=== PATIENT | male | born 1960 | race Caucasian/White ===

== ENCOUNTER 2016-10-05 23:20 | Inpatient (IN) | payer OTHER ==
--- NOTE | ~2016-10-05 | HP ---
Unit #: [id number] #: [id number] Patient: TORI SLAAS [id number] [address] [address] [id number] I MR#: [id number] NAME: TORI SALAS ROOM: 45 Age: 56 Sex: M Admission Date: 10/06/2016 : 1960 Attending Physician: Evette Paez M.D. Primary Care Physician: No Primary Care Physician HISTORY AND PHYSICAL REVISED REPORT CHIEF COMPLAINT Possible left tibial plateau fracture with hemarthrosis, hyponatremia, hypokalemia. HISTORY This 56-year-old male with multiple surgeries for congenital foot deformities, status post XRT for throat cancer is admitted after a fall with left knee pain. Patient states that he fell last evening, had to crawl to the phone to call EMS. He was brought to this emergency department complaining of left knee pain. X-rays are suspicious for a left tibial plateau fracture with likely hemarthrosis around the suprapatellar region. The patient also has osteopenia. A call was made to Dr. Lea who will see the patient in the morning but probably will treat conservatively given osteopenia. In the ER the patient was given 5 mg of hydrocodone. Labs are notable for hypokalemia and hyponatremia, and white blood count of 1.5 with an elevated MCV. PAST MEDICAL HISTORY 1. Throat cancer, status post XRT around 2007. 2. Chronic pain. 3. Multiple hand surgeries. 4. 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 ALLERGIES No known drug allergies. HOME MEDICATIONS Hydrocodone 10 mg q.i.d. FAMILY HISTORY Negative for CAD. SOCIAL HISTORY The patient lives alone. He smokes one pack per day of tobacco, drinks occasional beer. REVIEW OF SYSTEMS Notable for left knee pain, left foot requiring multiple surgeries, hand surgeries, tobacco abuse, throat cancer, chronic pain. All other systems were reviewed and are otherwise negative. Unit #: [id number] #: [id number] Patient: TORI SALAS PHYSICAL EXAMINATION GENERAL: 56-year-old male currently in no acute distress. VITAL SIGNS: Temperature 98.1, pulse 91, respirations 16, blood pressure 127/82, O2 saturation is 96% on room air. HEENT: Eyes - PERRLA, extraocular muscles are intact. Pharynx is difficult for me to view due to previous throat cancer. NECK: Supple without adenopathy or thyromegaly. CHEST: Fairly clear. CARDIAC: Slightly tachy S1 and S2 without murmur. There is rib cage/chest deformity noted. ABDOMEN: Bowel sounds are present. Mild hepatomegaly on exam, nontender. No masses. EXTREMITIES: Legs are both short with some edema bilaterally, there is pain around the left knee with effusion. Pain with movement of the left knee. NEUROLOGIC: Patient is awake, alert, oriented, cranial nerves are intact. He has equal strength throughout but is quite week on exam. DIAGNOSTIC STUDIES ADMISSION LABS: Hematocrit is 38.9, white blood count is 1.5 with an MCV of 114, normal differential. SMA 7 - sodium 125, potassium 3.2, chloride is 87. IMAGING STUDIES: X-rays of the left knee show prepatellar edema, likely hemarthrosis, osteopenia, cortical irregularity, medial proximal tibial metastasis. ASSESSMENT 1. Fall with possible left tibial fracture and hemiarthrosis. Patient has osteopenia and likely this will be treated nonoperatively. 2. Hyponatremia and hypokalemia. 3. Status post XRT for throat cancer. 4. Tobacco abuse. 5. Chronic pain. 6. Multiple leg surgeries for congenital foot deformities. 7. Chest deformity. 8. Neutropenia with normal differential and elevated MCV. PLANS 1. Orthopedic surgeon has been consulted. Will see in the morning. 2. Pain control. 3. Check urine sodium, TSH, chest x-ray. 4. Replace potassium and check magnesium. 5. SCDs for DVT prophylaxis. 6. Retic count, folic acid level and check B12 level. 7. Will check LFTs in the morning. 1. Dictated by Evette Paez M.D. AML/ts TD: 10/06/2016 05:59 JOB #: [id number] Unit #: [id number] #: [id number] Patient: TORI SALAS HISTORY AND PHYSICAL Page 1 of 1 X Evette Paez MD HISTORY AND PHYSICAL
--- NOTE | ~2016-10-05 | A ---
[facility] Nutrition Therapy DATE: 10/06/16 Patient: TORI DANIELKETT Physician: SUBHASH Address: [address] [place] [address] Room/Bed: [address] [place] [address], Zip: [place] [address] Admit Date: 10/06/16 Date of : 62 Height: 5 5 Weight: 99 45 NUTRITIONAL ASSESSMENT: REASON: PT SEEN FOR LOW BMI PT IS 56 Y.O. MALE ADMITTED FOR (L) TIBIAL PLATEAU FX PMH: THROAT CANCER S/P XRT IN 2007, CHRONIC PAIN SYNDROME, BILATERAL CONGENITAL DEFORMITY OF LEGS REQUIRING MULTIPLE SURGERIES Anthropometrics: 5'5", WT: 99# (45 KG), BMI: 16.5, 73%IBW Labs: BUN: <5, CREAT: 0.3, CA+:8.3, ALB: 3.3, NA+:129 Meds: LAXATIVE, ZOFRAN, NACL I/O & Bowel function: 405/300 Skin Integrity: BARREL CHEST OBSERVED EDEMA: BLE GENERALIZED EDEMA Estimated Nutrition Needs: INCREASED NUTRIENT NEEDS 2' PT UNDERWEIGHT STATUS, PMH Assessment: CHART REVIEWED AND EVENTS NOTED. PT SEEN FOR LOW BMI. PT REPORTS FAIR, "OK" PO INTAKE 2' DECREASED APPETITE, NOTES APPETITE "GOES UP AND DOWN". PT ADDS OCCASIONAL DIFFICULTY SWALLOWING. PT REPORTS CONSUMING ~2 MEALS + 1 SNACK DAILY AT HOME. PT REPORTS HIS UBW IS ~188#, NOTES LOSING WEIGHT SINCE XRT THERAPY IN 2007. OF NOTE, PT ATE ~50% BREAKFAST THIS AM. THIS RD ENCOURAGED ADEQUATE KCAL AND PROTEIN INTAKE, PT AGREED TO MAGIC CUP BID, RD WILL ORDER.PT REPORTED NO DIET QUESTIONS AT THIS TIME. RD TO FOLLOW. Dx: INADEQUATE PROTEIN-ENERGY INTAKE R/T APPETITE SO-SO AEB PT REPORT ABOVE, BMI OF 16.5, 73%IBW, WEIGHT LOSS NOTED OVER THE YEARS. Intervention: 1. MECHANICAL GROUND DIET 2. VANILLA MAGIC CUP BID Monitoring, Evaluation and Goals: 1. PO INTAKE; PROVIDE AND CONSUME ADEQUATE NUTRITION W/NO C/O N/V/D (PO>50%) 2. WEIGHTS; PROMOTE GRADUAL WEIGHT GAIN; PREVENT WEIGHT LOSS; PROMOTE LEAN BODY MASS 3. LABS; WNL 4. GI; PROMOTE REGULAR GI FUNCTION MONITOR: [facility] Nutrition Therapy DATE: 10/06/16 Patient: TORI SALAS Physician: SUBHASH Address: [address] Room/Bed: [address] [place] [address], Zip: [place] [address] Admit Date: 10/06/16 Date of : [birth year] Height: 5 5 Weight: 99 45 -PO INTAKE/APPETITE -SUPPLEMENT INTAKE -WEIGHTS Recommendations: 1. RECOMMEND TO CONSULT DIRECTOR OF INSTRUCTION RE: PT REPORT ABOVE OF NOTING TROUBLE SWALLOWING AT TIMES 2. PLEASE ORDER VANILLA MAGIC CUP BID W/MEALS ONCE APPROPRIATE 3. PLEASE WEIGH PT q 3 DAYS FOR MONITORING PURPOSES 4. APPRECIATE FAMILY AND STAFF TO ENCOURAGE ADEQUATE KCAL AND PROTEIN INTAKE RD WILL F/U PER PROTOCOL PT IS MILD/MODERATELY COMPROMISED Respectfully, PRUDENCE BROWNING MS, RD, LD [employer] [facility] cc: client file
--- NOTE | ~2016-10-05 | CR172 ---
[facility] A Service of [facility] RADIOLOGY TEXT RESULTS PATIENT: TORI SALAS LOCATION: [place] [address] : [birth year] UNIT #: [id number] AGE: [address]: Rosa Ashton MD SEX: M ORDER DR: [id number] [place] [id number] [facility]. [place], [place] [address] [id number] I MR#: [id number] Acc #: [id number] NAME: TORI SALAS : 1960 SEX: M STUDY DATE/TIME: 10/05/2016 22:23 UNIT: [facility] ROOM: 459 STUDY DESCRIPTION: CR Knee 3 Views Lt Attending Physician: Rosa Ashton M.D. Ordering Physician: Yann Dan M.D. Primary Care Physician: Primary Care Physician No MEDICAL IMAGING REPORT This report is preliminary unless electronic signature is present EXAM Left knee, 3 views COMPARISON None. INDICATION 56-year-old male with knee pain and swelling after falling today. FINDINGS The exam is limited by osteopenia. There is a large suprapatellar effusion/hemarthrosis. There is prepatellar soft tissue thickening, perhaps due to post-traumatic edema. There is irregularity at the medial aspect of the medial proximal tibial metaphysis. This could represent an acute fracture. IMPRESSION 1. There is prepatellar edema, likely post traumatic and there is a large suprapatellar effusion/hemarthrosis. 2. There is diffuse osteopenia limiting evaluation for acute fracture, however there appears to be cortical irregularity along the medial aspect of the medial proximal tibial metaphysis, raising concern for an acute fracture. No dislocation. Dictated by... Alvino Dodson M.D. THIS IS AN ELECTRONICALLY VERIFIED REPORT Alvino Dodson M.D. at 10/09/2016 9:14 PM MARINA/letty TD: 10/06/2016 07:47 [facility] A Service of [facility] RADIOLOGY TEXT RESULTS PATIENT: TORI SALAS LOCATION: [facility]2- : 62 UNIT #: [id number] AGE: [address]: Rosa Ashton MD SEX: M ORDER DR: JOB #: [id number] MEDICAL IMAGING REPORT Page 1 of 1 COPY
--- NOTE | ~2016-10-05 | DS ---
Unit #: [id number] #: [id number] Patient: TORI BAKER [id number] [address] [address] [id number] I MR#: [id number] NAME: TORI BAKER ROOM: [facility] Age: 56 Sex: M Admission Date: 10/06/2016 : 1960 Discharge Date: 10/09/2016 Attending Physician: Rosa Ashton M.D. DISCHARGE SUMMARY PRINCIPAL DIAGNOSES 1. Right tibial plateau fracture, nonoperative. 2. Chronic leukopenia with negative malignancy workup, question alcohol induced. 3. Chronic macrocytic anemia with normal folate level. 4. Mild hyponatremia, resolved. 5. Hypomagnesemia. 6. Chronic lymphedema. 7. Chronic pain syndrome, maintained on narcotics. 8. Mild vitamin B12 deficiency with vitamin B12 level of 295. 9. Underweight. 10. Moderate protein malnutrition. 11. Iron deficiency. 12. Alcohol use without evidence of withdrawal. 13. Prior history of throat cancer without evidence of recurrence. 14. Large right pleural effusion. CONSULTANTS 1. Dr. Lea, Orthopedic Surgery. 2. Dr. Bingham, Oncology. PROCEDURES 1. A two-dimensional echocardiogram on October 07, 2016, with mild tricuspid regurgitation. Grade 1 diastolic dysfunction noted. 2. CT of the chest without contrast on October 08, 2016, with a large right pleural effusion resulting in atelectasis in the right lower and part of the right upper lung. Ground-glass attenuation left upper lobe. 3. CT of the abdomen and pelvis without contrast on October 08, 2016, with no acute findings. Asymptomatic cholelithiasis noted. Benign left adrenal adenoma noted. 4. X-ray of left knee with prepatellar edema with associated suprapatellar effusion and hemarthrosis. Osteopenia noted. CLINICAL HISTORY AND HOSPITAL COURSE Mr. Baker is a 56-year-old male who presented to the emergency department with left leg pain after a fall at home. Please refer to History and Physical for further details. X-ray in the emergency department revealed a left tibial plateau fracture with associated hemarthrosis. Patient was unable to ambulate and was subsequently admitted. Dr. Lea was consulted. Upon evaluating the patient and reviewing the x-ray, he felt that this fracture would not require surgical repair. The plan is for nonweightbearing to left lower extremity with a small knee Unit #: [id number] #: [id number] Patient: TORI BAKER immobilizer on the left knee and follow up in the office. In the emergency department, patient was found to have a significant macrocytic anemia in conjunction with significant leukopenia. Review of records indicates leukopenia was rather chronic, as was macrocytosis. Dr. Bingham was consulted. Vitamin B12 level was found to be mildly low at 265, but workup was otherwise negative. LDH was also normal. CT scan of the chest, abdomen, and pelvis were also unremarkable for any lymphadenopathy or recurrent malignancy. It is felt that these abnormalities are chronic and may be secondary to chronic alcohol use. No further malignancy workup at least while inpatient. A CT scan of the chest did reveal a large right-sided pleural effusion, but patient is refusing thoracentesis. He states he has no symptoms, he does not feel short of breath, his oxygenation is normal, and if he has recurrent symptoms, he will re-present. Patient is otherwise clinically stable and will be discharged to rehab when a bed is available. DISCHARGE CONDITION Stable. DISCHARGE STATUS Discharge to rehab. DISCHARGE MEDICATIONS 1. Lac-Hydrin lotion twice daily to lower extremities. 2. Ferrous gluconate 324 mg daily. 3. Counce 10/325 at 1 tablet p.o. q.4 hours p.r.n. for pain. 4. Vitamin B12 at 1000 mcg p.o. daily. DISCHARGE INSTRUCTIONS 1. Patient was instructed to follow a high protein regular diet. 2. He can increase his activity as tolerated, but again, he is nonweightbearing on the left lower extremity and should wear the small knee immobilizer to the left lower extremity. FOLLOWUP Patient will follow up with Dr. Lea in two weeks. He can follow up with Dr. Bingham upon discharge from rehab and will follow up with his primary care physician at that time as well. Dictated by... Rosa Ashton M.D. Tsering TD: 10/09/2016 17:24 JOB #: [id number] Unit #: [id number] #: [id number] Patient: TORI BAEKR DISCHARGE SUMMARY Page 1 of 1 X Rosa Ashton MD DISCHARGE SUMMARY
--- NOTE | ~2016-10-05 | CT4 ---
[facility] A Service of [facility] RADIOLOGY TEXT RESULTS PATIENT: TORI SALAS LOCATION: [facility]08-09 : [birth year] UNIT #: [id number] AGE: [address]: Rosa Ashton MD SEX: M ORDER DR: [id number] [facility] [address] [facility]. [place], [place] [address] [id number] I MR#: [id number] #: [id number] NAME: TORI SALAS : 1960 SEX: M STUDY DATE/TIME: 10/08/2016 11:55 UNIT: [facility] ROOM: [facility] STUDY DESCRIPTION: CT Abd and Pelv Wo Cont Attending Physician: Rosa Ashton M.D. Ordering Physician: Cristo Willingham M.D. Primary Care Physician: Primary Care Physician No MEDICAL IMAGING REPORT This report is preliminary unless electronic signature is present EXAM CT abdomen and pelvis INDICATIONS Leukopenia. Positive smoker. Unexplained weight loss. Concern for metastatic disease. TECHNIQUE CT of the abdomen and pelvis with oral contrast only. Coronal and sagittal reconstructions were obtained. This CT exam was performed with one or more of the following radiation dose reduction techniques: Automatic exposure control, adjustment of mA and/or kV according to patient size, and iterative reconstruction. COMPARISON Concurrent CT chest dated 10/08/2016. FINDINGS The liver, pancreas, spleen, and kidneys are within normal limits on this noncontrasted study. No hydronephrosis. There is a left adrenal nodule measuring 1.5 cm. Given the low attenuation, this is consistent with a benign adenoma. There are some gallstones filling the gallbladder. The bowel is not dilated. The abdominal aorta is normal in caliber. PELVIS: No enlarged pelvic or inguinal lymph nodes. There is mild bladder wall thickening. Please correlate with urinalysis to identify cystitis. No acute osseous abnormalities. There is severe dysplasia and [facility] A Service of [facility] RADIOLOGY TEXT RESULTS PATIENT: TORI SALAS LOCATION: [facility]08-09 : [birth year] UNIT #: [id number] AGE: [address]: Rosa Ashton MD SEX: M ORDER DR: degenerative changes associated with the left femoral head and left hip. IMPRESSION 1. No acute findings in the abdomen and pelvis. 2. Cholelithiasis. 3. Benign left adrenal adenoma. 4. Not mentioned above, there is mild circumferential thickening of the urinary bladder. This is nonspecific, however can be seen in the setting of cystitis. Correlation to urinalysis is recommended. Dictated by... Almas Leon M.D. THIS IS AN ELECTRONICALLY VERIFIED REPORT Almas Leon M.D. at 10/09/2016 2:12 PM RPC/ally TD: 10/08/2016 19:16 JOB #: [id number] MEDICAL IMAGING REPORT Page 1 of 1 COPY
--- NOTE | ~2016-10-05 | CO ---
Unit #: [id number] #: [id number] Patient: TORI SALAS [id number] [address] [address] [id number] I MR#: [id number] NAME: TORI SALAS ROOM: 459 Age: 56 Sex: M Admission Date: 10/06/2016 : 1960 Attending Physician: Rosa Ashton M.D. Primary Care Physician: No Primary Care Physician Consultation Date: 10/06/2016 CONSULTATION REPORT REASON FOR CONSULTATION Left medial tibial plateau fracture. HISTORY OF PRESENT ILLNESS Mr. Salas is a 56-year-old male with a history of bilateral congenital deformity to his legs. The patient apparently was at home when he fell and sustained a left knee injury. He was able to crawl to the phone and be taken to the emergency room. In the emergency room, he was noted to have significant osteopenia of the left leg and knee. He was noted to have a small cortical breach of the medial tibial plateau and a hemarthrosis. Due to his inability to walk and that he lives by himself, he was admitted for social insurance administrator. The patient also has multiple medical history with throat cancer, chronic pain. He notes pain in the left knee. It is worse with motion than at rest. No prior problems with that knee specifically. He described a dull ache. PAST MEDICAL HISTORY 1. Throat cancer, status post radiation in 2007. 2. Chronic pain syndrome. PAST SURGICAL HISTORY 1. Multiple leg surgeries and hand surgeries. 2. Prior laryngectomy. SOCIAL HISTORY The patient lives alone. He does smoke one pack of cigarettes daily. He has occasional alcohol. FAMILY HISTORY Noncontributory. ALLERGIES No known drug allergies. HOME MEDICATIONS Hydrocodone 10 mg q.i.d. REVIEW OF SYSTEMS Aside from the left knee, no other significant issues at this time that he reports. PHYSICAL EXAMINATION GENERAL: The patient is a 56-year-old male in no acute distress. He is alert and oriented to examination. Unit #: [id number] #: [id number] Patient: TORI SALAS VITALS: Temperature 97.9 degrees Fahrenheit, pulse 105, respiratory rate 16, blood pressure 139/86, oxygen saturation 99% on room air. HEENT: Head atraumatic, normocephalic. Extraocular movements intact. Evidence of prior laryngectomy. CERVICAL SPINE: Midline. Tolerates cervical motion. LUNGS: Breathing normally, unlabored. CHEST: Chest rises symmetric. HEART: Pulse regular rate and rhythm. ABDOMEN: Soft, nontender and nondistended. EXTREMITIES: There is some mild edema of the bilateral lower extremities. No cyanosis or clubbing appreciated. Examination of the left lower extremity reveals mild swelling about the knee with tenderness to palpation about the medial tibial plateau. Tolerates 5 degrees of motion of the knee passively. Left leg is warm and well perfused. Intact motor and sensory examination. SKIN: No other skin lesions appreciated. NEUROLOGIC: DIAGNOSTIC STUDIES IMAGING: X-rays reviewed of the left knee. There is a small cortical breach along the medial tibial plateau with significant osteopenia. Hemarthrosis noted. No significant displacement of the fracture site. LABORATORY: Sodium 125, potassium 3.2, white blood cell count 1.5, hemoglobin 13.0. ASSESSMENT The patient is a 56-year-old male with nondisplaced left medial tibial plateau fracture. PLAN Recommend conservative treatment. We will order him a small knee immobilizer. He needs to keep the leg in this. He is nonweightbearing on the left lower extremity with no knee range of motion at this time. He will likely need rehab due to his social situation. Will order ice and elevation for the knee. He will follow up in the office in approximately two weeks for x-rays. This was discussed with the patient. All of his questions were answered. Dictated by... Yamil Lea M.D. NUSRAT/luis e TD: 10/06/2016 08:26 JOB #: [id number] CC: Yamil Lea M.D. Unit #: [id number] #: [id number] Patient: TORI SALAS CONSULTATION REPORT Page 1 of 1 X X CONSULTATION REPORT
--- NOTE | ~2016-10-05 | CO ---
Unit #: [id number] #: [id number] Patient: BILL SALAS [id number] [address] [address] [id number] I MR#: [id number] NAME: BILL SALAS ROOM: 47 Age: 56 Sex: M Admission Date: 10/06/2016 : 1960 Attending Physician: Rosa Ashton M.D. Consultation Date: 10/07/2016 CONSULTATION REPORT REASON FOR CONSULTATION Microcytic anemia and leukopenia, please evaluate. HISTORY OF PRESENT ILLNESS Mr. Bill Salas is 56 years old, had been for the left tibial plateau fracture and hemarthrosis with a history of congenital foot deformities for which he has had multiple surgeries as well as prior laryngeal cancer. CBC done following admission showed his white count is 2, hemoglobin is 11.5, MCV is 114 with a platelet count of 150,000. Review of his labs in this hospital done on 03/29/2014, his white count is 2.1, hemoglobin is 13.3, MCV is 106, and the platelet count is 187,000. He has had low white counts on previous admissions as well. Mr. Salas tells me that he has had no previous problems with his blood counts. No history of hepatitis or liver disease. He does have a history of alcohol use. He is drinking up to 10 beers a day, but does not admit to being an alcoholic. He was admitted to the hospital following a fall at home. After which, he was brought in, which showed left tibial fracture with hemarthrosis in the suprapatellar region. 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 ALLERGIES He has no known medication allergies. MEDICATION On admission was hydrocodone. FAMILY HISTORY Negative for blood disorders. SOCIAL HISTORY Alcohol, as discussed. Smokes a pack a day. Lives by himself. REVIEW OF SYSTEMS A 14-point review of systems was taken. CONSTITUTIONAL: No changes in appetite or weight. EYES: Negative. EARS, NOSE, MOUTH and THROAT: Negative. CARDIOVASCULAR: Negative. RESPIRATORY: Negative. Unit #: [id number] #: [id number] Patient: BILL SALAS MUSCULOSKELETAL: As discussed . SKIN: Negative. NEUROLOGIC: Negative. PSYCHIATRIC: Negative. PHYSICAL EXAMINATION GENERAL: He is a middle-aged man who looks frail. He is awake, alert, and oriented x3. VITAL SIGNS: Temperature is 98.4, pulse is 99, respiratory rate 17, blood pressure 124/74, oxygen saturation is 100% on room air. . HEENT: Shows pupils are equal and reactive well to light. Mucous membranes are moist. NECK: Without adenopathy, JVD, or thyromegaly. CARDIOVASCULAR: First and second heart sounds are heard and regular without murmurs, gallops, or rubs. LUNGS: Chest expansion is symmetric. Bilateral equal air entry. Normal breath sounds. ABDOMEN: Soft and nontender. Liver and spleen not palpable. EXTREMITIES: Sequelae of multiple surgeries of his foot and ankle are noted as well as deformity in hand and leg, has congenital problems as well. NEUROLOGIC: He is awake, alert, and oriented x3 without any focal findings. SKIN: Negative. ALLERGY/LYMPHATIC: Negative. DIAGNOSTIC STUDIES LABORATORY RESULTS: CBC as mentioned. Complete metabolic panel shows a sodium of 129, BUN is less than 5, creatinine is 0.3, eGFR is 150, AST is 33, ALT is 26, alkaline phosphatase is 66, bilirubin is 1, albumin is 3.3, B12 is 295, folic acid is 7.4. Thyroid function shows a TSH of 0.89 and free T4 was 1.16. ASSESSMENT/PLAN Mr. Bill Salas is 56 years old with a history of congenital foot and hand deformities, admitted with a left tibial fracture as well as hemarthrosis of the knee after a fall. His labs are notable for hyponatremia as well as microcytic anemia with leukopenia with absolute neutropenia. He has no history of liver disease in the past, but does admit to drinking several quantities of beer, which may be a possible culprit. Discussed with the patient. RECOMMENDATIONS 1. CT scan of the abdomen and pelvis to be done with contrast after he passes a bedside swallowing study to determine spleen size as well as liver morphology. 2. Reticulocyte count and LDH given his elevated MCHC. Thank you for allowing me to participate in his care. Dictated by... Delfino Bingham M.D. NILSON/nieves TD: 10/09/2016 05:56 JOB #: [id number] Unit #: [id number] #: [id number] Patient: BILL SALAS CONSULTATION REPORT Page 1 of 1 X Delfino Bingham MD CONSULTATION REPORT
--- NOTE | ~2016-10-05 | CR63 ---
[facility] A Service of [facility] RADIOLOGY TEXT RESULTS PATIENT: TORI SALAS LOCATION: [facility] 4503-09 : 62 UNIT #: [id number] AGE: [address]: Rosa Ashton MD SEX: M ORDER DR: [id number] [facility] [address]. [place], [place] [address] [id number] I MR#: [id number] Acc #: [id number] NAME: TORI SALAS : 1960 SEX: M STUDY DATE/TIME: 10/06/2016 8:29 UNIT: [facility] ROOM: 9 STUDY DESCRIPTION: CR Chest 2 View Attending Physician: Rosa Ashton M.D. Ordering Physician: Evette Paez M.D. Primary Care Physician: Primary Care Physician No MEDICAL IMAGING REPORT This report is preliminary unless electronic signature is present EXAM Chest 10/06/2016 HISTORY 56-year-old male patient history of throat cancer. Cough past 2 days. Decreased NA (presumed sodium). COMPARISON Chest 05/30/2014. FINDINGS 2 view chest demonstrates borderline heart size. There is a combination of vascular congestion and interstitial edema with a moderate right pleural effusion now present. This is all superimposed on preexisting COPD. Lobar edema versus pneumonia right lower lobe. IMPRESSION Cardiac failure versus fluid overload. Patient has a moderate right pleural effusion with vascular congestion. Lobar edema versus pneumonia right lower lobe all superimposed on COPD. STAT * RESULT Dictated by... Niko Toribio M.D. THIS IS AN ELECTRONICALLY VERIFIED REPORT Niko Toribio M.D. at 10/06/2016 11:28 AM MARY/letty [facility] A Service of [facility] RADIOLOGY TEXT RESULTS PATIENT: TORI SALAS LOCATION: [facility] 4503-09 : 62 UNIT #: [id number] AGE: [address]: Rosa Ashton MD SEX: M ORDER DR: TD: 10/06/2016 11:04 JOB #: [id number] MEDICAL IMAGING REPORT Page 1 of 1 COPY
--- NOTE | ~2016-10-05 | CT57 ---
[facility] A Service of [facility] RADIOLOGY TEXT RESULTS PATIENT: TORI SALAS LOCATION: [facility] : 62 UNIT #: [id number] AGE: [address]: Rosa Ashton MD SEX: M ORDER DR: [id number] [place] [id number] [facility]. [place], [place] [address] [id number] I MR#: [id number] Acc #: [id number] NAME: TORI SALAS : 1960 SEX: M STUDY DATE/TIME: 10/08/2016 11:55 UNIT: [facility] ROOM: [facility] STUDY DESCRIPTION: CT Chest Wo Cont Attending Physician: Rosa Ashton M.D. Ordering Physician: Cristo Willingham M.D. Primary Care Physician: Primary Care Physician No MEDICAL IMAGING REPORT This report is preliminary unless electronic signature is present EXAM CT chest 10/08/2016 INDICATIONS Recent fall. Positive smoking history. Leukopenia. Weight loss. TECHNIQUE CT of the thorax without contrast. Coronal and sagittal reconstructions were obtained. This CT exam was performed with one or more of the following radiation dose reduction techniques: automatic exposure control, adjustment of mA and/or kV according to patient size, and iterative reconstruction. COMPARISON Concurrent CT abdomen and pelvis dated 10/08/2016. FINDINGS There is a large right pleural effusion. This results in atelectasis in a large portion of the right lower lobe and portions of the right upper lobe. There is minimal ground-glass attenuation in the left upper lobe adjacent to the left major fissure. There is a small left pleural effusion. Central airways are patent. No pathologically enlarged mediastinal or hilar lymph nodes. The thoracic aorta is normal in caliber. No acute osseous abnormalities. IMPRESSION 1. Large right pleural effusion results in atelectasis in a portion of the right lung. 2. Ground-glass attenuation in the left upper lobe may represent an [facility] A Service of [facility] RADIOLOGY TEXT RESULTS PATIENT: TORI SALAS LOCATION: [facility] : 62 UNIT #: [id number] AGE: [address]: Rosa Ashton MD SEX: M ORDER DR: acute inflammatory/infectious process. Please correlate for any signs or symptoms of pneumonia. Dictated by... Almas Leon M.D. THIS IS AN ELECTRONICALLY VERIFIED REPORT Almas Leon M.D. at 10/09/2016 2:12 PM RPC/to TD: 10/08/2016 19:05 JOB #: [id number] MEDICAL IMAGING REPORT Page 1 of 1 COPY
[~2016-10-05 23:20] MED LIST: ALBUTEROL17 G1; LORTAB 101 TAB 10/5; WATER PILL
[2016-10-05 23:28] LABS: BASOPHIL% 0.9 % (0-2.5); DIFF IND YES; EOSINOPHIL% 1.1 % (0.0-7.0); HEMATOCRIT 38.9 % (38.0-50.0); LYMPHOCYTE# 0.4 X10e3 (1.0-3.5); LYMPHOCYTE% 29.7 % (17.0-45.0); MEAN CELL VOLUME 114.3 FL (83-96); MEAN CORPUSCULAR HEMOGLOBIN 38.2 PG (28-34); MEAN CORPUSCULAR HGB CONC 33.4 g/dL (30-36); MEAN PLATELET VOLUME 6.8 FL (6.5-11.5); MONOCYTE# 0.2 X10e3 (0-1.0); MONOCYTE% 16.4 % (3.0-12.0); NEUTROPHIL# 0.8 X10e3 (1.5-7.1); NEUTROPHIL% 51.9 % (40-75); PLATELET COUNT 213 X10e3 (140-420); RED CELL DISTRIBUTION WIDTH 12.4 % (11.0-15.5); WHITE BLOOD COUNT 1.5 X10e3 (4.0-10.5)
[2016-10-05 23:37] LABS: INR 1.1; PROTHROMBIN TIME (PATIENT) 11.4 SECONDS (9.6-11.5)
[2016-10-05 23:56] LABS: PLATELET ESTIMATE NORMAL (NORMAL)
[2016-10-06] LABS: CALCIUM SERUM 8.4 mg/dL (8.4-10.2); CARBON DIOXIDE 29 mmol/L (22-31); CHLORIDE 87 mmol/L (100-111); CREATININE SERUM 0.4 mg/dL (0.6-1.4); GLOM FILT RATE Estimated 133.8 mL/min (>60); GLUCOSE FASTING 75 mg/dL (70-110); POTASSIUM 3.2 mmol/L (3.5-5.1)
[2016-10-06 00:01] LABS: BLOOD UREA NITROGEN <5 mg/dL (9-23)
[2016-10-06 00:02] LABS: SODIUM 125 mmol/L (135-145)
[2016-10-06] MEDS ORDERED: HYDROCODONE-APA1 T55 PO (03:51)
[2016-10-06 10:06] LABS: BASOPHIL% 0.3 % (0-2.5); DIFF IND NO; EOSINOPHIL% 0.5 % (0.0-7.0); HEMATOCRIT 39.7 % (38.0-50.0); HEMOGLOBIN 13.4 gm/dL (13.0-16.0); LYMPHOCYTE# 0.2 X10e3 (1.0-3.5); MEAN CELL VOLUME 114.4 FL (83-96); MEAN CORPUSCULAR HEMOGLOBIN 38.7 PG (28-34); MEAN CORPUSCULAR HGB CONC 33.8 g/dL (30-36); MEAN PLATELET VOLUME 6.9 FL (6.5-11.5); MONOCYTE# 0.2 X10e3 (0-1.0); NEUTROPHIL# 1.2 X10e3 (1.5-7.1); NEUTROPHIL% 72.2 % (40-75); PLATELET COUNT 193 X10e3 (140-420); RED BLOOD COUNT 3.47 X10e (3.90-5.60); RED CELL DISTRIBUTION WIDTH 12.3 % (11.0-15.5); RETICULOCYTE 1.5 % (0.5-2.8); WHITE BLOOD COUNT 1.7 X10e3 (4.0-10.5)
[2016-10-06 10:22] LABS: ALBUMIN SERUM 3.3 g/dL (3.5-5.0); ALKALINE PHOSPHATASE 66 U/L (32-92); ALT (SGPT) 26 U/L (10-40); AST (SGOT) 33 U/L (10-42); BLOOD UREA NITROGEN <5 mg/dL (9-23); BUN/CREATININE RATIO 16.66; CALCIUM SERUM 8.3 mg/dL (8.4-10.2); CARBON DIOXIDE 28 mmol/L (22-31); CHLORIDE 94 mmol/L (100-111); CREATININE SERUM 0.3 mg/dL (0.6-1.4); GLOM FILT RATE Estimated 150.6 mL/min (>60); GLUCOSE FASTING 87 mg/dL (70-110); MAGNESIUM 1.6 mg/dL (1.6-3.0); POTASSIUM 4.3 mmol/L (3.5-5.1); PROTEIN TOTAL SERUM 5.5 g/dL (6.0-8.3); SODIUM 129 mmol/L (135-145)
[2016-10-06 10:29] LABS: THYROID STIMULATING HORMONE 0.89 uIU/ml (0.34-5.60)
[2016-10-06 10:35] LABS: FREE THYROXIN (T4) 1.16 ng/dL (0.58-1.64)
[2016-10-06 12:59] LABS: FOLATE (FOLIC ACID) 11.4 ng/mL (>5.8)
[2016-10-06 17:26] LABS: BLOOD UREA NITROGEN <5 mg/dL (9-23); CALCIUM SERUM 8.1 mg/dL (8.4-10.2); CARBON DIOXIDE 27 mmol/L (22-31); CHLORIDE 97 mmol/L (100-111); CREATININE SERUM 0.4 mg/dL (0.6-1.4); GLOM FILT RATE Estimated 133.8 mL/min (>60); GLUCOSE FASTING 127 mg/dL (70-110); POTASSIUM 4.2 mmol/L (3.5-5.1); SODIUM 131 mmol/L (135-145)
[2016-10-07 04:27] LABS: BASOPHIL% 1.3 % (0-2.5); EOSINOPHIL% 0.4 % (0.0-7.0); HEMATOCRIT 33.6 % (38.0-50.0); HEMOGLOBIN 11.5 gm/dL (13.0-16.0); LYMPHOCYTE# 0.4 X10e3 (1.0-3.5); LYMPHOCYTE% 18.5 % (17.0-45.0); MEAN CELL VOLUME 114.4 FL (83-96); MONOCYTE# 0.4 X10e3 (0-1.0); MONOCYTE% 18.8 % (3.0-12.0); NEUTROPHIL# 1.2 X10e3 (1.5-7.1); PLATELET COUNT 150 X10e3 (140-420); RED BLOOD COUNT 2.94 X10e (3.90-5.60); RED CELL DISTRIBUTION WIDTH 12.3 % (11.0-15.5)
[2016-10-07 04:30] LABS: DIFF IND NO
[2016-10-07 04:41] LABS: BLOOD UREA NITROGEN <5 mg/dL (9-23); CALCIUM SERUM 7.9 mg/dL (8.4-10.2); CARBON DIOXIDE 26 mmol/L (22-31); CHLORIDE 98 mmol/L (100-111); CREATININE SERUM 0.4 mg/dL (0.6-1.4); GLOM FILT RATE Estimated 133.8 mL/min (>60); GLUCOSE FASTING 113 mg/dL (70-110); MAGNESIUM 2.1 mg/dL (1.6-3.0); POTASSIUM 3.6 mmol/L (3.5-5.1); SODIUM 131 mmol/L (135-145)
[2016-10-07 16:27] LABS: IRON SERUM 26 ug/dL (45-182); LACTIC ACID DEHYDROGENASE 118 U/L (91-180); TOTAL IRON BINDING CAPACITY 202 ug/dL (252-460); TRANSFERRIN 144 mg/dL (180-329); TRANSFERRIN SATURATION 13 % (20-50)
[2016-10-08 03:44] LABS: HEMATOCRIT 32.1 % (38.0-50.0); HEMOGLOBIN 10.9 gm/dL (13.0-16.0); MEAN CELL VOLUME 114.9 FL (83-96); MEAN CORPUSCULAR HEMOGLOBIN 39.1 PG (28-34); MEAN PLATELET VOLUME 6.9 FL (6.5-11.5); RED BLOOD COUNT 2.79 X10e (3.90-5.60); RED CELL DISTRIBUTION WIDTH 12.4 % (11.0-15.5); WHITE BLOOD COUNT 1.9 X10e3 (4.0-10.5)
[2016-10-08 03:48] LABS: BLOOD UREA NITROGEN <5 mg/dL (9-23); BUN/CREATININE RATIO 16.66; CALCIUM SERUM 8.1 mg/dL (8.4-10.2); CARBON DIOXIDE 26 mmol/L (22-31); CHLORIDE 99 mmol/L (100-111); CPK (CREATINE PHOSPHOKINASE) 20 IU/L (36-174); CREATININE SERUM 0.3 mg/dL (0.6-1.4); GLOM FILT RATE Estimated 150.6 mL/min (>60); GLUCOSE FASTING 93 mg/dL (70-110); POTASSIUM 3.7 mmol/L (3.5-5.1); SODIUM 132 mmol/L (135-145)
[2016-10-09 04:37] LABS: ALBUMIN SERUM 2.4 g/dL (3.5-5.0); ALKALINE PHOSPHATASE 49 U/L (32-92); ALT (SGPT) 18 U/L (10-40); AST (SGOT) 23 U/L (10-42); BILIRUBIN,TOTAL 0.9 mg/dL (0.2-2.0); BLOOD UREA NITROGEN <5 mg/dL (9-23); BUN/CREATININE RATIO 16.66; CALCIUM SERUM 8.2 mg/dL (8.4-10.2); CARBON DIOXIDE 27 mmol/L (22-31); CHLORIDE 101 mmol/L (100-111); CREATININE SERUM <0.3 mg/dL (0.6-1.4); GLOM FILT RATE Estimated UNABLE TO CALCULATE mL/min (>60); GLUCOSE FASTING 86 mg/dL (70-110); POTASSIUM 3.9 mmol/L (3.5-5.1); PROTEIN TOTAL SERUM 4.9 g/dL (6.0-8.3); SODIUM 133 mmol/L (135-145)
[2016-10-09 15:32] LABS: BASOPHIL% 0.8 % (0-2.5); EOSINOPHIL% 1.1 % (0.0-7.0); HEMATOCRIT 34.8 % (38.0-50.0); HEMOGLOBIN 11.8 gm/dL (13.0-16.0); LYMPHOCYTE# 0.3 X10e3 (1.0-3.5); LYMPHOCYTE% 15.1 % (17.0-45.0); MEAN CELL VOLUME 114.5 FL (83-96); MEAN CORPUSCULAR HGB CONC 34.1 g/dL (30-36); MEAN PLATELET VOLUME 7.2 FL (6.5-11.5); MONOCYTE# 0.5 X10e3 (0-1.0); MONOCYTE% 21.2 % (3.0-12.0); NEUTROPHIL# 1.4 X10e3 (1.5-7.1); NEUTROPHIL% 61.8 % (40-75); PLATELET COUNT 185 X10e3 (140-420); RED BLOOD COUNT 3.04 X10e (3.90-5.60); RED CELL DISTRIBUTION WIDTH 12.1 % (11.0-15.5); WHITE BLOOD COUNT 2.3 X10e3 (4.0-10.5)
[2016-10-09 15:33] LABS: DIFF IND YES
[2016-10-09 15:59] LABS: PLATELET ESTIMATE NORMAL (NORMAL)
== END 2016-10-10 18:00 | DRG 562 ==
LOC: CED 23:20 → CEDOF 10-06 00:45 → C4B 10-06 03:23 → C4C 10-07 13:58
PROVIDERS: Emergency Medicine; Family Medicine; Internal Medicine; Internal Medicine Hematology & Oncology; Nurse Practitioner
PROC: B24BZZZ Ultrasonography of Heart with Aorta (ICD-10-PCS; principal; 2016-10-07)
DX: S82.145A Nondisplaced bicondylar fracture of left tibia, initial encounter for closed fracture (principal); E43 Unspecified severe protein-calorie malnutrition; J90 Pleural effusion, not elsewhere classified; D70.9 Neutropenia, unspecified; E87.1 Hypo-osmolality and hyponatremia; E83.42 Hypomagnesemia; I36.1 Nonrheumatic tricuspid (valve) insufficiency; Z68.1 Body mass index [BMI] 19.9 or less, adult; J98.11 Atelectasis; W19.XXXA Unspecified fall, initial encounter; Y92.009 Unspecified place in unspecified non-institutional (private) residence as the place of occurrence of the external cause; M17.12 Unilateral primary osteoarthritis, left knee; D53.9 Nutritional anemia, unspecified; I89.0 Lymphedema, not elsewhere classified; G89.4 Chronic pain syndrome; Z79.899 Other long term (current) drug therapy; E53.8 Deficiency of other specified B group vitamins; D50.9 Iron deficiency anemia, unspecified; Z72.89 Other problems related to lifestyle; M85.862 Other specified disorders of bone density and structure, left lower leg; E87.6 Hypokalemia; F17.210 Nicotine dependence, cigarettes, uncomplicated; M95.4 Acquired deformity of chest and rib; R62.7 Adult failure to thrive; Z85.20 Personal history of malignant neoplasm of unspecified respiratory organ; Z92.3 Personal history of irradiation
CPT/HCPCS: 36415; 71020; 71250; 73562; 74176; 80048; 80053; 82550; 82607; 82728; 82746; 83540; 83550; 83615; 83735; 83880; 84134; 84300; 84439; 84443; 85025; 85027; 85044; 85610; 85730; 92610; 93306; 97110; 97163; 97167; 97530; 97535; 99285; J1956; J2270; J3420; J3475

== ENCOUNTER 2017-01-31 00:14 | Inpatient (IN) | payer OTHER ==
[~2017-01-31] VITALS: Ht 149.9 cm; Wt 38.0 kg
--- NOTE | ~2017-01-31 | DS ---
Unit #: [id number] #: [id number] Patient: TORI SALAS [id number] [address] [place], [place] [address] [id number] I MR#: [id number] NAME: TORI SALAS ROOM: 465 Age: 56 Sex: M Admission Date: 01/31/2017 : 1960 Discharge Date: 02/05/2017 Attending Physician: Rosa Ashton M.D. Primary Care Physician: No Primary Care Physician DISCHARGE SUMMARY ADDENDUM This is an addendum to a Transfer of Care Summary done on February 02, 2017. Date of discharge February 05, 2017. PRINCIPAL DIAGNOSES 1. Acute hypoxic respiratory failure secondary to pulmonary edema. 2. Chronic right pleural effusion for which patient refuses thoracentesis. 3. Left tibial plateau fracture. HOSPITAL COURSE X-rays noted on last dictation were found to have a left tibial plateau fracture. The patient was seen in consultation by Dr. Pal who recommended toe-touch weight bearing as tolerated and a left knee immobilization. Patient has been seen by physical therapy who did suggest that he requires inpatient subacute rehab which patient is agreeable to. Patient developed some pulmonary edema secondary to IV hydration necessary to correct his hyponatremia. IV fluids were discontinued and cardiology was consulted. Two dimensional echocardiogram was done but the report is not on the chart. He has been placed on low dose Lasix and sodium is stable at 132. We will maintain low dose Lasix but does not have to be monitored closely given patient's oral intake is questionable. Today, patient is complaining of right knee pain and, assuming x-rays are negative, he can be discharged to rehab. DISCHARGE CONDITION Stable. DISCHARGE STATUS Discharge to rehab. DISCHARGE MEDICATIONS 1. Ventolin inhaler, two puffs every six hours p.r.n. for shortness of breath. 2. Magnesium oxide 400 mg p.o. b.i.d. 3. Eliquis 10 mg p.o. b.i.d. through February 07, 2017, and then to change to 5 mg p.o. daily. 4. Lasix 20 mg p.o. b.i.d. 5. A daily multivitamin. 6. [place] 5/325, one tablet every four hours p.r.n. for pain. 7. Klor-Con 40 mEq p.o. daily. Unit #: [id number] #: [id number] Patient: TORI SALAS 8. Vitamin D3 50,000 units weekly. 9. Vitamin B12 1000 mcg p.o. daily. DISCHARGE INSTRUCTIONS Patient was instructed to follow a regular diet. He can increase his activity as tolerated. Again, he is toe-touch weight bearing on the left lower extremity. FOLLOWUP Patient will follow up with Dr. Pal in two weeks. Patient will follow up with his primary care provider upon discharge from subacute rehab. However, I will note I will have further discussions with patient and his family given I think he demonstrates poor ability for self care and would benefit from rodent exterminator care. Dictated by... Rosa Ashton M.D. RADHA/alton TD: 02/05/2017 10:41 JOB #: [id number] DISCHARGE SUMMARY Page 1 of 1 X Rosa Ashton MD X DISCHARGE SUMMARY
--- NOTE | ~2017-01-31 | TOC ---
Unit #: [id number] #: [id number] Patient: TORI SALAS [id number] [address] [address] [id number] I MR#: [id number] NAME: TORI SALAS ROOM: 564 Age: 56 Sex: M Admission Date: 01/31/2017 : 1960 Attending Physician: Rosa Ashton M.D. Primary Care Physician: No Primary Care Physician TRANSFER OF CARE SUMMARY PRINCIPAL DIAGNOSES 1. Hypovolemic, hyponatremia. 2. Hypoglycemia secondary to poor oral intake. 3. Right peroneal vein deep venous thrombosis secondary to chronic immobility. 4. Left knee pain with pending x-ray. Patient is status post fall. 5. Visible hallucinations, psychiatric in origin. 6. Hypokalemia. 7. Hypomagnesemia. 8. Severe protein malnutrition. 9. Chronic immobility. 10. Chronic leukopenia with negative workup in the past. 11. History of alcohol abuse. 12. History of throat cancer resolved. 13. Chronic pain syndrome maintained on narcotics. 14. Chronic lymphedema. 15. Iron deficiency anemia. 16. Tobaccoism. 17. Edentulous. 18. Inability to care for self. 19. Starvation ketosis. CONSULTANTS None. PROCEDURES X-rays of left knee, which are currently pending. Bilateral lower extremity venous Doppler revealing a DVT within the right peroneal vein. No left lower extremity DVT. CLINICAL HISTORY AND HOSPITAL COURSE Mr Salas is a 56-year-old male who presents to the emergency department with acute onset of leg pain and weakness. Please refer to H and P for further details. IN the emergency department, the patient was tachycardic and appeared significantly dehydrated. Blood work revealed a sodium level of 117 and patient's glucose was left than 50. Patient also had a mild anion gap metabolic acidosis secondary to starvation. Patient was subsequently admitted. In regards to patient's hyponatremia, he was placed in IV fluids given he appeared significantly dehydrated. He has been maintained on normal saline and sodium has fully crept up to 127 at the time of dictation. I will note that patient has some mild chronic hyponatremia generally running about 130 so he is very near his baseline. When oral intake Unit #: [id number] #: [id number] Patient: TORI SALAS improves he can safely come off IV fluids. In regards to patient's hypoglycemia, he was placed on dextrose containing IV fluids and sugars have remained stable. Patient's oral intake is still quite poor, but again this is chronic. In regards to patient's bilateral leg pain, he underwent a venous Doppler revealing a right leg DVT that my clinical suspicion is secondary to chronic immobility. He was initially placed on Lovenox therapy but disliked the shots and has been transitioned to Eliquis. Eliquis will cost him no more than $2.00 on an outpatient basis. However, since he started Eliquis he states "it makes me feel funny." He thinks the TV is lower than it is. He thinks he is in the bathroom but really he is in the bed. I do not think this confusion is Eliquis related and he is having no other acute neurologic deficit. I am going to treat this with Ativan and continue Eliquis, which he needs to continue honestly in his case lifelong. Patient was complaining of the abrupt onset of left leg pain but adamantly denied to me he had any falls at home. However, today, he tells physical therapy he fell at home and thus x-rays are pending. We will await x-rays. If not fracture we will simply just get him a knee brace. In my opinion, patient demonstrates an inability to care for himself at home. He was significantly dehydrated. He has exceptionally poor nutritional status, has had DVT from not moving at home. Patient states he functions well at home but I adamantly disagree. The plan is for him to be discharged to rehab and I think his best interest should be long-term care, though patient again is adamantly refusing this. Further hospital course to be dictated as an addendum. Dictated by... Rosa Ashton M.D. RADHA/marcella TD: 02/02/2017 11:29 JOB #: [id number] TRANSFER OF CARE SUMMARY Page 1 of 1 X Rosa Ashton MD TRANSFER OF CARE SUMMARY
--- NOTE | ~2017-01-31 | CR169 ---
[facility] A Service of [facility] RADIOLOGY TEXT RESULTS PATIENT: TORI SALAS LOCATION: C2A 229-01 : 62 UNIT #: [id number] AGE: [address]: Rosa Ashton MD SEX: M ORDER DR: [id number] [place] [address] [place], [place] [address] [id number] I MR#: [id number] Acc #: [id number] NAME: TROI SALAS : 1960 SEX: M STUDY DATE/TIME: 02/02/2017 1003 UNIT: C2A ROOM: 229 STUDY DESCRIPTION: CR Knee 2 Views Lt Attending Physician: Rosa Ashton M.D. Ordering Physician: Rosa Ashton M.D. Primary Care Physician: No Primary Care Physician MEDICAL IMAGING REPORT This report is preliminary unless electronic signature is present EXAM Left knee 2 views 02/02/2017 1003 hours CLINICAL HISTORY Patient fell 2 days ago with left knee and lower leg pain. COMPARISON Left knee film 10/05/2016 FINDINGS AP and lateral views demonstrate resolution of the joint effusion seen on prior study. There is marked osteopenia with deformity of the medial tibial metaphysis likely an area of healed fracture. The patella appears slightly high-riding but is unchanged. IMPRESSION 1. Marked osteopenia with no definite acute fracture. 2. Resolution of the knee joint effusion seen on prior film 10/05/2016. 3. Probable healed fracture of the medial tibial metaphysis near the previous level of the physis. Dictated by... Buffy Rubio M.D. THIS IS AN ELECTRONICALLY VERIFIED REPORT Buffy Rubio M.D. at 02/02/2017 5:19 PM [place] TD: 02/02/2017 15:45 JOB #: [id number] MEDICAL IMAGING REPORT Page 1 of 1 COPY
--- NOTE | ~2017-01-31 | HP ---
Unit #: [id number] #: [id number] Patient: TORI SALAS [id number] [address] [place], [place] [address] [id number] I MR#: [id number] NAME: TORI SALAS ROOM: 89973 Age: 56 Sex: M Admission Date: 01/31/2017 : 1960 Attending Physician: Rosa Ashton M.D. Primary Care Physician: No Primary Care Physician HISTORY AND PHYSICAL PRIMARY CARE PHYSICIAN Dr. Hurd CHIEF COMPLAINT Leg pain and weakness. HISTORY OF PRESENT ILLNESS Mr. Salas is a 56-year-old male known to me who presents to the ER for above. The patient was at this facility in October of 2016 after presenting with a right tibial plateau fracture as a result of a fall. The patient was discharged to rehab and states he was there for three weeks. Since that time, he has been back to living by himself at home. He states yesterday he suddenly had the abrupt onset of bilateral leg weakness. He denies any falls at home. He tells me he is eating well at home and has been functioning well. I will admit he is a poor historian and does not directly answer any questions and seems a bit confused to me. Review of ER notes indicate patient was afebrile upon presentation, was tachycardic with a heart rate of 110 and had a blood pressure of 184/110. O2 sats were normal. Patient told the ER physician he can't walk now due to pain in his legs, left greater than right. Lab work done in the emergency department reveals a sodium level of 117 in addition to some hypoglycemia with sugar of 50. The patient has been admitted due to his hyponatremia. He states now he is in pain and he wants more pain medication. Otherwise, really can't tell me any history to support anything recently that has been going on at home. He states he still drinks alcohol but is vague on the amount and states "sometimes." PAST MEDICAL HISTORY 1. 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 2. Throat cancer, status post radiation in 2007. There is no evidence of recurrence. 3. Chronic leukopenia that is felt to be alcohol induced. 4. History of hyponatremia. 5. Chronic lymphedema. 6. Chronic pain syndrome, maintained on narcotics. 7. Vitamin B12 deficiency with vitamin B12 level of 295 in October of 2016. 8. Iron deficiency. 9. History of alcohol use, again without evidence of withdrawal in October 2016. 10. Known right pleural effusion for which patient refused thoracentesis in October 2016. Unit #: [id number] #: [id number] Patient: TORI SALAS 11. Underweight. PAST SURGICAL HISTORY 1. Again, multiple leg surgeries due to his bilateral foot deformities. 2. Multiple hand surgeries. ALLERGIES No known drug allergies. MEDICATIONS Home medications include hydrocodone 5/325, one tablet p.o. q.6 hours p.r.n. for pain. FAMILY HISTORY Reportedly negative. SOCIAL HISTORY The patient lives alone but is assisted by his aunt who helps him with groceries. He smokes one pack of cigarettes per day and drinks but he is vague on frequency. REVIEW OF SYSTEMS Denies any fever, denies any chest pain. Does state he has some shortness of breath at home but without any cough. He denies any vision changes, any sore throat. A tingling numbness of the arms, states bilateral leg weakness is quick in onset and was yesterday. Complaining of bilateral leg pain and wants more pain meds. States bowels are moving fine. However, I will note review of systems is limited. Patient is not making good eye contact and not directly answering any questions. PHYSICAL EXAMINATION VITAL SIGNS: Temperature 97.8, blood pressure 129/90, pulse rate 125, respiratory rate 18. Oxygen saturation is 98% on room air. BMI is 20. GENERAL: The patient is awake. He is alert. He seems oriented at least to self and place. He makes poor eye contact and is cachectic. HEENT: Pupils equally round, reactive to light bilaterally. Anicteric sclerae. No conjunctival pallor. Oropharynx with dry mucous membranes. Patient is edentulous. NECK: Supple. No lymphadenopathy, no thyromegaly, no JVD. HEART: Tachycardic but otherwise regular rhythm without murmur, rub or gallop. LUNGS: Mildly diminished bilaterally but otherwise clear without wheezes, rhonchi or crackles. ABDOMEN: Extremely thin, soft, nontender, nondistended. No appreciable hepatosplenomegaly. EXTREMITIES: No cyanosis, clubbing and 1+ nonpitting edema bilaterally. I will note patient is extremely sensitive to touch. No erythema of the skin noted. SKIN: No rash, no erythema. Edema as previously noted. NEUROLOGIC: Cranial nerves II-XII are intact. Sensation is intact on all four extremities. Deep tendon reflexes are normal in the upper and lower extremities bilaterally. Babinski is negative. Patient does appear significantly weak in the right lower extremity and barely can raise above gravity but effort was poor. PSYCHIATRIC: Poor eye contact, vague answers but no suicidal or homicidal ideation. MUSCULOSKELETAL: No significant joint abnormalities noted on exam. Unit #: [id number] #: [id number] Patient: TORI SALAS DIAGNOSTIC STUDIES LABORATORY: Lab work done in the emergency department reveals a white blood cell count of 3.3, hemoglobin 15.0, platelet count of 140,000. Sodium is 117, potassium 4.9, chloride 80, bicarb 21, BUN less than 5, creatinine 0.4, glucose of 50. AST/ALT are normal. Bilirubin elevated at 2.1. Albumin normal at 4.0. Anion gap is elevated at 16. Urinalysis in the emergency department was unremarkable. Troponins have been negative x2. BNP was normal at 57. CARDIOVASCULAR: EKG done in the emergency room reveals sinus tachycardia. Patient has Q wave present in II, III and AVF and left axis deviation is noted. Q wave is also present in V1. ASSESSMENT 1. Hyponatremia, likely hypovolemic. 2. Hypoglycemia, likely secondary to poor oral intake. 3. Chronic lymphedema with only mild exacerbation. 4. Chronic leukopenia, likely alcohol induced. 5. History of alcohol abuse. 6. Chronic immobility. 7. Underweight. 8. Tobaccoism. 9. Edentulous. PLAN 1. Will admit patient to telemetry. 2. Place on low dose normal saline. Will recheck labs at [address] on D5 normal saline, followup blood sugar readings. 4. PT/OT to eval and treat. 5. Continue chronic pain medications. 6. I think patient demonstrates poor self care and likely needs ferry terminal agent care. Dictated by Rosa Ashton M.D. RADHA/alton TD: 01/31/2017 08:57 JOB #: [id number] HISTORY AND PHYSICAL Page 1 of 1 X Rosa Ashton MD HISTORY AND PHYSICAL
--- NOTE | ~2017-01-31 | US84 ---
[id number] [facility]. [facility] [address] [place], [place] [address] [id number] MR#: [id number] Acc #: [id number] NAME: TORI SALAS : 1960 SEX: M STUDY DATE/TIME: 01/31/2017 9:22 UNIT: [facility] ROOM: 564 STUDY DESCRIPTION: US LE Veins Complete Bharat Stdy Attending Physician: Rosa Ashton M.D. Ordering Physician: Rosa Ashton M.D. Primary Care Physician: Primary Care Physician No MEDICAL IMAGING REPORT This report is preliminary unless electronic signature is present EXAM Bilateral lower extremity Doppler venous ultrasound DATE 01/31/2017 HISTORY Bilateral lower straight pain and swelling for 2 days. History of throat cancer. COMPARISON None FINDINGS Real-time, quiros-scale, color Doppler AND spectral Doppler images were performed bilateral lower extremity veins from the groin through the calf regions. The bilateral common femoral, femoral, anterior posterior tibial, popliteal veins, and left peroneal vein demonstrate normal flow, compressibility and/or augmentation without evidence of deep venous thrombosis. However, deep venous thrombosis is detected within the right peroneal vein. No superficial venous thrombus is identified on either side. IMPRESSION 1. Finding is positive for deep venous thrombosis within the right peroneal vein. Findings were discussed with patient's nurse at the time of this dictation. 2. No left lower extremity deep venous thrombosis. Dictated by... Mali Almaguer M.D. THIS IS AN ELECTRONICALLY VERIFIED REPORT Mali Almaguer M.D. at 02/02/2017 9:[address] [facility]/to TD: 01/31/2017 15:18 JOB #: [id number] MEDICAL IMAGING REPORT Page 1 of 1 COPY
--- NOTE | ~2017-01-31 | EKG ---
PATIENT: TORI SALAS UNIT #: [id number] Ventricular Rate: 97 BPM Atrial Rate: 97 BPM P-R Interval: 140 ms QRS Duration: 66 ms Q-T Interval: 342 ms QTC Calculation(Bezet): 434 ms P Retsof: 57 degrees Calculated R Retsof: -30 degrees Calculated T Retsof: 77 degrees Diagnosis Line: Normal sinus rhythm Diagnosis Line: Left axis deviation Diagnosis Line: Cannot rule out Anterior infarct (cited on or Diagnosis Line: before 31-JAN-2017) Diagnosis Line: Abnormal ECG Diagnosis Line: When compared with ECG of 31-JAN-2017 04:03, Diagnosis Line: Criteria for Inferior infarct are no longer Diagnosis Line: Present Diagnosis Line: Questionable change in initial forces of Anterior Diagnosis Line: leads Diagnosis Line: Confirmed by CHOLO MEDRANO MD ([id number]) on 02/07/2017 Diagnosis Line: 7:49:00 AM INTERPRETING MD: MITCHELL RITTER
--- NOTE | ~2017-01-31 | CO ---
Unit #: [id number] #: [id number] Patient: TORI SALAS [id number] [address] [place], [place] [address] [id number] I MR#: [id number] NAME: TORI SALAS ROOM: [facility] Age: 56 Sex: M Admission Date: 01/31/2017 : 1960 Attending Physician: Rosa Ashton M.D. Primary Care Physician: No Primary Care Physician Consultation Date: 02/04/2017 CONSULTATION REPORT REASON FOR CONSULTATION Rule out congestive heart failure. 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 Patient denies history of myocardial infarction, cardiac catheterization, or 2D echocardiogram. Patient is a poor historian. I [facility] and I have not found any evidence of coronary artery disease. 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 He had throat cancer in 2007 and is status post radiation. He does have a history of alcohol use and hyponatremia. He is B12 and iron deficient. He does have chronic lymph edema. Patient apparently refused a thoracentesis in October 2016 for a right pleural effusion. Apparently, patient continues to drink alcohol and smoke and does have a history of falls. He lives alone. Patient initially presented to the emergency department after a fall. He did undergo a venous Doppler revealing a right leg DVT that is likely secondary to chronic immobility. He was initially placed on Lovenox therapy and was transitioned to Eliquis. He was also found to have a right tibial plateau fracture after his fall. Patient has been admitted to the hospital for further workup for his DVT. volunteer services supervisor has been following for possible placement as patient lives alone. Cardiology has been consulted for generalized edema, possible anasarca, and rule out congestive heart failure. Patient's EKG from January 31 shows sinus tachycardia with a rate of 118 beats per minute with left atrial enlargement and left axis deviation. Inferior and anterior infarct with age undetermined. Patient denies any chest pain or shortness of breath. BNP was 57. PAST MEDICAL HISTORY 1. 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 2. Throat cancer in 2007, status post radiation. 3. 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 4. History of hyponatremia. 5. Chronic lymphedema. 6. Chronic pain syndrome. 7. B12 and iron deficiency. 8. Right pleural effusion, refused thoracentesis in October 2016. 9. Falls. 10. Tobaccoism. 11. Alcohol use. Unit #: [id number] #: [id number] Patient: TORI SALAS PAST SURGICAL HISTORY Multiple leg surgeries and hand surgeries. ALLERGIES No known allergies. HOME MEDICATION Hydrocodone 5/325 one tab p.o. q.6 hours p.r.n. pain. FAMILY HISTORY Patient denies any history of coronary artery disease. SOCIAL HISTORY Patient lives alone but is assisted by his aunt. He continues to smoke one pack of cigarettes a day and does drink alcohol. Patient was vague on his alcohol frequency. REVIEW OF SYSTEMS A 10-point review of systems has been done and is considered otherwise negative unless indicated in the HPI. PHYSICAL EXAMINATION GENERAL: Patient is awake and alert in no acute distress. VITAL SIGNS: Temperature 97.7, heart rate 97, respirations 20, blood pressure 121/71. He is oxygenating 100%. HEENT: Head is atraumatic, normocephalic. Pupils equal, round, and reactive. Extraocular movements are intact. No drainage from ears or nares. He is wearing glasses. NECK: Supple. Trachea is midline. No thyromegaly or lymphadenopathy is appreciated. Normal carotid upstrokes. CHEST: Lungs are diminished bilaterally with no wheezes, rales, or rhonchi. CARDIOVASCULAR: S1, S2. Regular rate and rhythm. No murmurs, rubs, or gallops appreciated. ABDOMEN: Soft, nontender, nondistended. Bowel sounds are positive in all four quadrants. SKIN: Appears to be warm and dry. EXTREMITIES: No clubbing or cyanosis. Patient does have 1 to 2 bilateral lower extremity edema and also he has edema in his upper extremities. NEUROLOGIC: Patient is appropriate. Alert and oriented. Again, he is a poor historian. Cranial nerves II-XII appear to be intact. DIAGNOSTIC STUDIES LABORATORY: White blood cells 1.9, hemoglobin 11, hematocrit 32.3, platelets 133,000. Sodium 130, potassium 3.6, chloride 94, CO2 of 29, BUN less than 5, creatinine 0.3, glucose 88, magnesium 1.9. ASSESSMENT 1. Generalized edema. 2. Right tibial plateau fracture for fall. 3. Hypovolemic hyponatremia. 4. Right peritoneal deep venous thrombosis secondary to immobility. 5. Severe protein calorie malnutrition. 6. Chronic lymphedema. 7. Chronic pain syndrome. 8. Chronic leukopenia with a history of a negative workup. 9. History of throat cancer in 2007, status post radiation. Unit #: [id number] #: [id number] Patient: TORI SALAS 10. Immobility. 11. Alcohol use. 12. Tobaccoism. 13. Right pleural effusion from October 2016 where thoracentesis was refused. PLAN At this time, a 2D echocardiogram has been ordered. Will start the patient on strict ins and outs and on Lasix 20 mg IV b.i.d. Will need to watch the patient's BMP, magnesium, and sodium level. Will do daily weights. Will check a lipid panel and a TSH and will obtain an EKG. Further recommendations will be per Dr. Ramos. Dictated by... Olya Pickens A.P.R.N. for Juancarlos Ramos M.D. AM/robinson TD: 02/04/2017 11:16 JOB #: [id number] CONSULTATION REPORT Page 1 of 1 X Olya Pickens APRN X CONSULTATION REPORT
--- NOTE | ~2017-01-31 | CR71 ---
[facility] A Service of [facility] RADIOLOGY TEXT RESULTS PATIENT: TORI SALAS LOCATION: [facility] 465-01 : [birth year] UNIT #: [id number] AGE: [address]: Rosa Ashton MD SEX: M ORDER DR: [id number] [facility] [address]. [place], [place] [address] [id number] I MR#: [id number] #: [id number] NAME: TORI SALAS : 1960 SEX: M STUDY DATE/TIME: 02/03/2017 18:07 UNIT: [facility] ROOM: [facility] STUDY DESCRIPTION: CR Chest Single View Attending Physician: Rosa Ashton M.D. Ordering Physician: Ed Doctor [id number] [facility] Primary Care Physician: Primary Care Physician No MEDICAL IMAGING REPORT This report is preliminary unless electronic signature is present EXAM Frontal chest, 02/03/2017. INDICATIONS 56-year-old male with shortness of air. History of throat cancer, cough, congestion, swelling and lower extremity swelling bilaterally. TECHNIQUE Frontal chest. COMPARISON STUDIES Compared with 10/06/2016. FINDINGS Cardiac silhouette borderline in size and stable. There is vascular congestion and interstitial edema. Bilateral effusions right greater than left present with compressive atelectasis or pneumonia in the lung bases and extending into the midlung zone on the right. There is pleural thickening on the right. No pneumothorax. Chronic rib fractures. Background changes of COPD. IMPRESSION 1. Background changes of COPD with volume overload. Interstitial edema and pleural effusions right greater than left. More confluent areas of edema atelectasis or pneumonia in the lung bases and in the perihilar and mid lung zone on the right. 2. No pneumothorax. Pleural thickening on the right. 3. Chronic rib fractures. 4. Follow up to resolution recommended. STAT * RESULT [facility] A Service of [facility] RADIOLOGY TEXT RESULTS PATIENT: TORI SALAS LOCATION: [facility] 465-01 : [birth year] UNIT #: [id number] AGE: [address]: Rosa Ashton MD SEX: M ORDER DR: Dictated by... Dav Mathis M.D. THIS IS AN ELECTRONICALLY VERIFIED REPORT Dav Mathis M.D. at 02/04/2017 10:06 PM Ty TD: 02/03/2017 18:45 JOB #: [id number] MEDICAL IMAGING REPORT Page 1 of 1 COPY
--- NOTE | ~2017-01-31 | EKG ---
PATIENT: TORI SALAS UNIT #: [id number] Ventricular Rate: 118 BPM Atrial Rate: 118 BPM P-R Interval: 156 ms QRS Duration: 64 ms Q-T Interval: 334 ms QTC Calculation(Bezet): 468 ms P [place]: 72 degrees Calculated R [place]: -57 degrees Calculated T [place]: 65 degrees Diagnosis Line: Sinus tachycardia Diagnosis Line: Left atrial enlargement Diagnosis Line: Left axis deviation Diagnosis Line: Inferior infarct , age undetermined Diagnosis Line: Anterior infarct , age undetermined Diagnosis Line: Abnormal ECG Diagnosis Line: No previous ECGs available Diagnosis Line: Confirmed by JAQUAN SEPULVEDA MD ([id number]) on Diagnosis Line: 01/31/2017 11:58:35 AM INTERPRETING MD: COCO RITTER
--- NOTE | ~2017-01-31 | CR170 ---
[facility] A Service of [facility] RADIOLOGY TEXT RESULTS PATIENT: TORI SALAS LOCATION: [facility] 465-01 : [birth year] UNIT #: [id number] AGE: [address]: Rosa Ashton MD SEX: M ORDER DR: [id number] [facility] [address]. [place], [place] [address] [id number] I MR#: [id number] Acc #: [id number] NAME: TORI SALAS : 1960 SEX: M STUDY DATE/TIME: 02/05/2017 14:12 UNIT: [facility] ROOM: [facility] STUDY DESCRIPTION: CR Knee 2 Views Rt Attending Physician: Rosa Ashton M.D. Ordering Physician: Rosa Ashton M.D. Primary Care Physician: Primary Care Physician No MEDICAL IMAGING REPORT This report is preliminary unless electronic signature is present EXAM Right knee series, 02/05/2017 HISTORY Edema. 4 days duration. Thinks he twisted it. FINDINGS AP and lateral views of the right knee are presented. Diminished bony mineralization. No traumatic fracture or malalignment. Moderate to marked narrowing lateral joint space compartment. Mild to moderate narrowing medial and patellofemoral joint space compartments. No joint effusion. No soft tissue defect, subcutaneous air or radiodense foreign body. There are subcutaneous calcifications medial lower thigh. Dictated by... Chad Canas M.D. THIS IS AN ELECTRONICALLY VERIFIED REPORT Chad Canas M.D. at 02/06/2017 11:32 PM Erum TD: 02/06/2017 02:24 JOB #: [id number] MEDICAL IMAGING REPORT Page 1 of 1 COPY
--- NOTE | ~2017-01-31 | CR252 ---
[facility] A Service of [facility] & [facility] RADIOLOGY TEXT RESULTS PATIENT: TORI SALAS LOCATION: [facility] 229-01 : 62 UNIT #: [id number] AGE: [address]: Rosa Ashton MD SEX: M ORDER DR: [id number] [facility] [address] [place], [place] [address] [id number] I MR#: [id number] Acc #: [id number] NAME: TORI SALAS : 1960 SEX: M STUDY DATE/TIME: 02/02/2017 10:02 UNIT: [facility] ROOM: 229 STUDY DESCRIPTION: CR Tibia and Fibula 2 Views Lt Attending Physician: Rosa Ashton M.D. Ordering Physician: Rosa Ashton M.D. Primary Care Physician: Primary Care Physician No MEDICAL IMAGING REPORT This report is preliminary unless electronic signature is present EXAM Left tibia and fibula 02/02/2017 1002 hours CLINICAL HISTORY 56-year-old man with fall 2 days ago complaining of knee and lower leg pain and swelling. COMPARISON Knee film 10/05/2016. FINDINGS AP and lateral views of the tibia and fibula demonstrate marked osteopenia and bowing deformity of the distal tibia and fibula. There is cortical irregularity at the medial tibial plateau likely representing an area of healed fractures as was present on 10/05/2016. No definite new fracture is seen. Evaluation is limited by the degree of osteopenia. Diffuse subcutaneous edema is seen. IMPRESSION 1. Marked osteopenia with bowing deformity of the distal tibia and fibula and deformity of the ankle suggested. 2. There is cortical irregularity at the medial tibial cortex at the previous level of the physis appearing slightly less acute in angulation than on 10/05/2016. This is likely an area of healed fracture. No definite acute fracture is seen, however, sensitivity is limited by the marked osteopenia. Dictated by... Buffy Rubio M.D. THIS IS AN ELECTRONICALLY VERIFIED REPORT Buffy Rubio M.D. at 02/02/2017 5:19 [address] [facility] A Service of [facility] & [facility] RADIOLOGY TEXT RESULTS PATIENT: TORI SALAS LOCATION: [facility] 229-01 : [birth year] UNIT #: [id number] AGE: [address]: Rosa Ashton MD SEX: M ORDER DR: Terry TD: 02/02/2017 16:00 JOB #: [id number] MEDICAL IMAGING REPORT Page 1 of 1 COPY
--- NOTE | ~2017-01-31 | CO ---
Unit #: [id number] #: [id number] Patient: TORI BAKER [id number] [address] [place], [place] [address] [id number] I MR#: [id number] NAME: TORI BAKER ROOM: 465 Age: 56 Sex: M Admission Date: 01/31/2017 : 1960 Attending Physician: Rosa Ashton M.D. CONSULTATION REPORT HISTORY OF PRESENT ILLNESS Mr. Baker is a 56-year-old gentleman, who was admitted through the emergency room complaining of bilateral leg pain. His x-rays in the ER revealed a fracture of the left proximal tibia, not intra-articular. He states that he has had pain off and on, but this occurred in October. Evidently, this was as a result of a fall. He has been living by himself and he was admitted after x-rays revealed a fracture and we have been asked to treat his left tibia fracture. He is a minimal ambulator at home, but now he cannot walk at all because of pain in his lower extremities. PAST MEDICAL HISTORY Reveals he has a history of throat cancer and radiation; bilateral foot deformities; chronic pain syndrome, on narcotics; B12 deficiency; iron deficiency; alcohol use. PAST SURGICAL HISTORY Include multiple leg surgeries on his feet, multiple hand surgery. ALLERGIES He has no allergies. MEDICATIONS Vicodin for pain. SOCIAL HISTORY He lives at home alone, but is assisted by an aunt, who helps him with groceries. He is a smoker and he does use alcohol. REVIEW OF SYSTEMS He does have some shortness of breath, but denies fevers, cough, or hemoptysis. He denies any chest pain. Denies any abdominal complaints. No nausea, vomiting, or diarrhea. Denies headaches. No vision changes. Orthopedically, he does complain of lower extremity pain on both sides, the left being worse. PHYSICAL EXAMINATION GENERAL: His exam today is alert and awake and he answers questions, although he is a poor historian. VITAL SIGNS: He is afebrile. His blood pressure is 147/86, pulse is 94. EXTREMITIES: Orthopedic exam in his lower extremities, his left knee does not have an effusion. He is a little tender in the proximal tibia, mild swelling. 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 Unit #: [id number] #: [id number] Patient: TORI BAKER IMPRESSION He has a left proximal tibia fracture and we will treat this nonoperatively. Dictated by... Trixie Bolivar/nieves TD: 02/03/2017 11:18 JOB #: [id number] CONSULTATION REPORT Page 1 of 1 X Rich Pal MD X CONSULTATION REPORT
--- NOTE | ~2017-01-31 | DS ---
Unit #: [id number] #: [id number] Patient: TORI SALAS [id number] [address] [address] [id number] I MR#: [id number] NAME: TORI SALAS ROOM: 465 Age: 56 Sex: M Admission Date: 01/31/2017 : 1960 Discharge Date: 02/05/2017 Attending Physician: Rosa Ashton M.D. DISCHARGE SUMMARY ADDENDUM HOSPITAL COURSE (CONTINUED) Patient was seen in consultation by Cardiology. His ejection fraction was noted to be normal at 55%. He was started on metoprolol 12.5 mg b.i.d. for better heart rate control. X-ray of the right knee per my reading is negative. I am awaiting official reading, but if negative, he can be discharged to rehab. DISCHARGE MEDICATIONS (CONTINUED) 10. Metoprolol 12.5 mg b.i.d. DISCHARGE INSTRUCTIONS (CONTINUED) Patient will follow up with Dr. Carmen on March 27 at 1 p.m. Dictated by... Rosa Ashton M.D. RADHA/berry TD: 02/05/2017 16:10 JOB #: [id number] DISCHARGE SUMMARY Page 1 of 1 X Rosa Ashton MD DISCHARGE SUMMARY
[~2017-01-31 00:14] MED LIST changes: +HYDROCODONE-APA1 T55 PO
[2017-01-31 03:47] LABS: POC - CKMB 2.5 ng/mL (0.0-7.9); POC - TROPONIN <0.05 ng/mL (<=0.05)
[2017-01-31 03:53] LABS: BASOPHIL% 0.2 % (0-2.5); EOSINOPHIL% 0.2 % (0.0-7.0); HEMATOCRIT 43.3 % (38.0-50.0); LYMPHOCYTE# 0.3 X10e3 (1.0-3.5); MEAN CELL VOLUME 97.2 FL (83-96); MEAN CORPUSCULAR HEMOGLOBIN 33.6 PG (28-34); MEAN CORPUSCULAR HGB CONC 34.6 g/dL (30-36); MEAN PLATELET VOLUME 6.6 FL (6.5-11.5); MONOCYTE# 0.3 X10e3 (0-1.0); MONOCYTE% 8.9 % (3.0-12.0); NEUTROPHIL# 2.7 X10e3 (1.5-7.1); NEUTROPHIL% 82.7 % (40-75); PLATELET COUNT 140 X10e3 (140-420); RED BLOOD COUNT 4.45 X10e (3.90-5.60); RED CELL DISTRIBUTION WIDTH 15.1 % (11.0-15.5); WHITE BLOOD COUNT 3.3 X10e3 (4.0-10.5)
[2017-01-31 03:54] LABS: DIFF IND NO
[2017-01-31 04:19] LABS: ALKALINE PHOSPHATASE 69 U/L (32-92); ALT (SGPT) 19 U/L (10-40); AST (SGOT) 33 U/L (10-42); BILIRUBIN, DIRECT 0.4 mg/dL (0.0-0.2); BILIRUBIN,INDIRECT 1.7 mg/dL (0.0-0.9); BILIRUBIN,TOTAL 2.1 mg/dL (0.2-2.0); CALCIUM SERUM 8.6 mg/dL (8.4-10.2); CARBON DIOXIDE 21 mmol/L (22-31); CHLORIDE 80 mmol/L (100-111); CREATININE SERUM 0.4 mg/dL (0.6-1.4); GLOM FILT RATE Estimated 133.8 mL/min (>60); POTASSIUM 4.9 mmol/L (3.5-5.1); PROTEIN TOTAL SERUM 6.6 g/dL (6.0-8.3)
[2017-01-31 04:21] LABS: BLOOD UREA NITROGEN <5 mg/dL (9-23); GLUCOSE FASTING 50 mg/dL (70-110); SODIUM 117 mmol/L (135-145)
[2017-01-31 04:23] LABS: URINE SOURCE CLEAN CATCH
[2017-01-31 04:40] LABS: URINE APPEARANCE CLEAR; URINE BILIRUBIN NEG (NEG); URINE BLOOD NEG (NEG); URINE COLOR YELLOW; URINE GLUCOSE NEG (NEG); URINE KETONE 3+ (NEG); URINE LEUKOCYTE ESTERASE NEG (NEG); URINE NITRATE NEG (NEG); URINE PH 5.5 (5-8); URINE PROTEIN NEG (NEG); URINE SPECIFIC GRAVITY 1.014 (1.003-1.035); URINE UROBILINOGEN 0.2 MG/DL (NEG)
[2017-01-31 04:44] LABS: CULTURE INDICATED? NO
[2017-01-31 05:37] LABS: POC - CKMB 1.9 ng/mL (0.0-7.9); POC - TROPONIN <0.05 ng/mL (<=0.05)
[2017-01-31 08:35] LABS: CALCIUM SERUM 7.9 mg/dL (8.4-10.2); CARBON DIOXIDE 18 mmol/L (22-31); CHLORIDE 82 mmol/L (100-111); CREATININE SERUM 0.3 mg/dL (0.6-1.4); GLOM FILT RATE Estimated 150.6 mL/min (>60); GLUCOSE FASTING 67 mg/dL (70-110); POTASSIUM 4.1 mmol/L (3.5-5.1)
[2017-01-31 08:37] LABS: BLOOD UREA NITROGEN <5 mg/dL (9-23); BUN/CREATININE RATIO 16.66
[2017-01-31 08:38] LABS: SODIUM 117 mmol/L (135-145)
[2017-01-31] MEDS ORDERED: PATIENT'S PHARMACY (09:46)
[2017-01-31] MEDS ORDERED: AMMONIUM LACTA385 G1 (09:47)
[2017-01-31] MEDS ORDERED: HYDROCODON-ACE1 EAC5 PO (09:47)
[2017-01-31] MEDS ORDERED: B-121000 MC1 PO (09:48)
[2017-01-31] MEDS ORDERED: ALBUTEROL17 GM INH (09:48)
[2017-01-31] MEDS ORDERED: NICOTINE PATCH1 EACH TOP (09:48)
[2017-01-31] MEDS ORDERED: VITAMIN D350000 UNIT PO (09:48)
[2017-01-31 12:38] LABS: MAGNESIUM 1.4 mg/dL (1.6-3.0)
[2017-01-31 12:42] LABS: CALCIUM SERUM 7.9 mg/dL (8.4-10.2); CARBON DIOXIDE 22 mmol/L (22-31); CHLORIDE 82 mmol/L (100-111); CREATININE SERUM 0.5 mg/dL (0.6-1.4); GLUCOSE FASTING 81 mg/dL (70-110); POTASSIUM 4.3 mmol/L (3.5-5.1)
[2017-01-31 12:44] LABS: BLOOD UREA NITROGEN <5 mg/dL (9-23)
[2017-01-31 12:45] LABS: SODIUM 118 mmol/L (135-145)
[2017-01-31 12:58] LABS: PROCALCITONIN 0.07 NG/ML
[2017-01-31 16:11] LABS: INR 1.1; PROTHROMBIN TIME (PATIENT) 12.3 SECONDS (10.0-11.7)
[2017-01-31 17:55] LABS: CALCIUM SERUM 7.5 mg/dL (8.4-10.2); CARBON DIOXIDE 20 mmol/L (22-31); CHLORIDE 86 mmol/L (100-111); CREATININE SERUM 0.4 mg/dL (0.6-1.4); GLOM FILT RATE Estimated 133.8 mL/min (>60); GLUCOSE FASTING 106 mg/dL (70-110); POTASSIUM 3.7 mmol/L (3.5-5.1)
[2017-01-31 17:56] LABS: BLOOD UREA NITROGEN <5 mg/dL (9-23)
[2017-01-31 17:58] LABS: SODIUM 118 mmol/L (135-145)
[2017-02-01 10:14] LABS: HEMATOCRIT 41.3 % (38.0-50.0); HEMOGLOBIN 14.1 gm/dL (13.0-16.0); MEAN CELL VOLUME 98.5 FL (83-96); MEAN CORPUSCULAR HEMOGLOBIN 33.7 PG (28-34); MEAN CORPUSCULAR HGB CONC 34.2 g/dL (30-36); MEAN PLATELET VOLUME 6.5 FL (6.5-11.5); RED BLOOD COUNT 4.19 X10e (3.90-5.60); RED CELL DISTRIBUTION WIDTH 15.8 % (11.0-15.5)
[2017-02-01 11:04] LABS: CARBON DIOXIDE 27 mmol/L (22-31); CHLORIDE 92 mmol/L (100-111); CREATININE SERUM 0.4 mg/dL (0.6-1.4); GLOM FILT RATE Estimated 133.8 mL/min (>60); GLUCOSE FASTING 169 mg/dL (70-110); MAGNESIUM 1.6 mg/dL (1.6-3.0); POTASSIUM 3.6 mmol/L (3.5-5.1)
[2017-02-01 11:12] LABS: BLOOD UREA NITROGEN <5 mg/dL (9-23)
[2017-02-01 11:14] LABS: SODIUM 124 mmol/L (135-145)
[2017-02-01 13:45] LABS: SODIUM URINE RANDOM <10 mmol/L
[2017-02-01 14:12] LABS: OSMOLALITY,URINE 355 mOsmo/kg (250-900)
[2017-02-02 06:01] LABS: CALCIUM SERUM 8.1 mg/dL (8.4-10.2); CARBON DIOXIDE 26 mmol/L (22-31); CHLORIDE 94 mmol/L (100-111); CREATININE SERUM 0.3 mg/dL (0.6-1.4); GLOM FILT RATE Estimated 150.6 mL/min (>60); GLUCOSE FASTING 126 mg/dL (70-110); MAGNESIUM 1.5 mg/dL (1.6-3.0); POTASSIUM 3.4 mmol/L (3.5-5.1); SODIUM 127 mmol/L (135-145)
[2017-02-02 06:02] LABS: BLOOD UREA NITROGEN <5 mg/dL (9-23); BUN/CREATININE RATIO 16.66
[2017-02-03 06:10] LABS: CARBON DIOXIDE 26 mmol/L (22-31); CHLORIDE 96 mmol/L (100-111); GLUCOSE FASTING 148 mg/dL (70-110); MAGNESIUM 1.6 mg/dL (1.6-3.0); POTASSIUM 3.7 mmol/L (3.5-5.1); SODIUM 128 mmol/L (135-145)
[2017-02-03 06:11] LABS: BLOOD UREA NITROGEN <5 mg/dL (9-23); BUN/CREATININE RATIO 16.66; CREATININE SERUM <0.3 mg/dL (0.6-1.4); GLOM FILT RATE Estimated UNABLE TO CALCULATE mL/min (>60)
[2017-02-03 18:46] LABS: SODIUM URINE RANDOM 97 mmol/L
[2017-02-03 18:48] LABS: URINE APPEARANCE CLEAR; URINE BILIRUBIN NEG (NEG); URINE BLOOD NEG (NEG); URINE COLOR YELLOW; URINE GLUCOSE 250 MG/DL (NEG); URINE KETONE NEG (NEG); URINE LEUKOCYTE ESTERASE NEG (NEG); URINE NITRATE NEG (NEG); URINE PH 5.5 (5-8); URINE PROTEIN NEG (NEG); URINE SPECIFIC GRAVITY 1.015 (1.003-1.035); URINE UROBILINOGEN 0.2 MG/DL (NEG)
[2017-02-03 20:42] LABS: OSMOLALITY,URINE 521 mOsmo/kg (250-900)
[2017-02-04 03:53] LABS: HEMATOCRIT 32.3 % (38.0-50.0); MEAN CELL VOLUME 98.6 FL (83-96); MEAN CORPUSCULAR HEMOGLOBIN 33.4 PG (28-34); MEAN CORPUSCULAR HGB CONC 33.9 g/dL (30-36); MEAN PLATELET VOLUME 7.4 FL (6.5-11.5); RED BLOOD COUNT 3.28 X10e (3.90-5.60); RED CELL DISTRIBUTION WIDTH 15.7 % (11.0-15.5); WHITE BLOOD COUNT 1.9 X10e3 (4.0-10.5)
[2017-02-04 04:21] LABS: ALBUMIN SERUM 3.1 g/dL (3.5-5.0); ALKALINE PHOSPHATASE 50 U/L (32-92); ALT (SGPT) 14 U/L (10-40); AST (SGOT) 23 U/L (10-42); CALCIUM SERUM 8.3 mg/dL (8.4-10.2); CARBON DIOXIDE 29 mmol/L (22-31); CHLORIDE 94 mmol/L (100-111); CREATININE SERUM 0.3 mg/dL (0.6-1.4); GLOM FILT RATE Estimated 150.6 mL/min (>60); GLUCOSE FASTING 88 mg/dL (70-110); MAGNESIUM 1.9 mg/dL (1.6-3.0); PHOSPHOROUS 3.3 mg/dL (2.5-4.6); POTASSIUM 3.6 mmol/L (3.5-5.1); PROTEIN TOTAL SERUM 5.3 g/dL (6.0-8.3); SODIUM 130 mmol/L (135-145)
[2017-02-04 04:22] LABS: BLOOD UREA NITROGEN <5 mg/dL (9-23); BUN/CREATININE RATIO 16.66
[2017-02-04 13:30] LABS: CHOLESTEROL 118 mg/dL (0-200); HDL CHOLESTEROL 67 mg/dL (29-75); LDL CHOLESTEROL 40 mg/dL (-130); LDL/HDL RATIO 1 RATIO (0-4); TRIGLYCERIDES 54 mg/dL (10-160)
[2017-02-05 03:25] LABS: HEMATOCRIT 31.2 % (38.0-50.0); HEMOGLOBIN 10.7 gm/dL (13.0-16.0); MEAN CELL VOLUME 98.6 FL (83-96); MEAN CORPUSCULAR HEMOGLOBIN 33.9 PG (28-34); MEAN CORPUSCULAR HGB CONC 34.4 g/dL (30-36); RED BLOOD COUNT 3.16 X10e (3.90-5.60); RED CELL DISTRIBUTION WIDTH 15.6 % (11.0-15.5); WHITE BLOOD COUNT 1.9 X10e3 (4.0-10.5)
[2017-02-05 03:49] LABS: BLOOD UREA NITROGEN <5 mg/dL (9-23); BUN/CREATININE RATIO 16.66; CALCIUM SERUM 8.2 mg/dL (8.4-10.2); CARBON DIOXIDE 36 mmol/L (22-31); CHLORIDE 93 mmol/L (100-111); CREATININE SERUM <0.3 mg/dL (0.6-1.4); GLOM FILT RATE Estimated UNABLE TO CALCULATE mL/min (>60); GLUCOSE FASTING 103 mg/dL (70-110); MAGNESIUM 1.9 mg/dL (1.6-3.0); SODIUM 132 mmol/L (135-145)
== END 2017-02-06 13:30 | DRG 640 ==
LOC: CED 00:14 → C5C 05:50 → CEDOF 05:50 → CED 06:00 → CEDOF 07:26 → C5C 14:54 → C2A 02-02 14:51 → C4C 02-03 06:23
PROVIDERS: Emergency Medicine; Internal Medicine; Internal Medicine Cardiovascular Disease
PROC: B24BZZZ Ultrasonography of Heart with Aorta (ICD-10-PCS; principal; 2017-02-03)
DX: E87.1 Hypo-osmolality and hyponatremia (principal); J96.01 Acute respiratory failure with hypoxia; E43 Unspecified severe protein-calorie malnutrition; J81.1 Chronic pulmonary edema; J90 Pleural effusion, not elsewhere classified; S82.102A Unspecified fracture of upper end of left tibia, initial encounter for closed fracture; I82.491 Acute embolism and thrombosis of other specified deep vein of right lower extremity; F17.210 Nicotine dependence, cigarettes, uncomplicated; E16.2 Hypoglycemia, unspecified; I89.0 Lymphedema, not elsewhere classified; D72.818 Other decreased white blood cell count; M62.3 Immobility syndrome (paraplegic); Z68.20 Body mass index [BMI] 20.0-20.9, adult; K06.9 Disorder of gingiva and edentulous alveolar ridge, unspecified; W19.XXXA Unspecified fall, initial encounter; Z91.81 History of falling; G89.4 Chronic pain syndrome; I10 Essential (primary) hypertension; M25.561 Pain in right knee; Z85.89 Personal history of malignant neoplasm of other organs and systems; Z92.3 Personal history of irradiation; F10.10 Alcohol abuse, uncomplicated
CPT/HCPCS: 36415; 71010; 73560; 73590; 80048; 80053; 80061; 80076; 81003; 82308; 82553; 82947; 83605; 83735; 83880; 83930; 83935; 84100; 84300; 84439; 84443; 84484; 84600; 85025; 85027; 85610; 86592; 93005; 93306; 93970; 94640; 94664; 94760; 96374; 96375; 97116; 97162; 97167; 97530; 97535; 99285; G0480; G8978-GP; G8979-GP; G8987-GO; G8988-GO; J1650; J1940; J2270; J2405; J3475